=== PATIENT | female | born 1965 | race Caucasian/White ===

== ENCOUNTER 2019-10-17 11:23 | Outpatient (CLI) | payer OTHER, SELFPAY ==
[2019-10-17 13:53] LABS: T4 Thyroxine 9.83 ug/dL (5.53-11.0)
== END 2019-10-17 11:24 | disposition home or self-care (01) ==
LOC: ANHWCLAB 11:27
PROVIDERS: PCP Internal Medicine Endocrinology, Diabetes & Metabolism; Visit Provider Internal Medicine Endocrinology, Diabetes & Metabolism
DX: E05.90 Thyrotoxicosis, unspecified without thyrotoxic crisis or storm (principal)
CPT/HCPCS: 36415; 84436; 84443

== ENCOUNTER 2020-08-06 12:01 | Outpatient (CLI) | payer OTHER, SELFPAY ==
[2020-08-06 12:52] LABS: Free T4 Free Thyroxine 1.03 ng/mL (0.78-2.19); Vitamin D 25 Hydroxy 91.4 ng/mL
[2020-08-08 14:41] LABS: Thyroid Stimulating Immunoglob <89 % baseline (<140)
[2020-08-11 07:00] LABS: Triiodothyronine T3 Free 3.2 pg/mL (2.3-4.2)
== END 2020-08-06 12:02 | disposition home or self-care (01) ==
LOC: ANHLAB 12:03
PROVIDERS: PCP Physician Assistant; Visit Provider Internal Medicine Endocrinology, Diabetes & Metabolism
DX: E05.90 Thyrotoxicosis, unspecified without thyrotoxic crisis or storm (principal); E04.9 Nontoxic goiter, unspecified
CPT/HCPCS: 36415; 82306; 84439; 84443; 84445; 84481

== ENCOUNTER 2021-04-07 14:31 | Outpatient (CLI) | payer OTHER, SELFPAY ==
[2021-04-07 15:34] LABS: Free T4 Free Thyroxine 1.03 ng/mL (0.78-2.19)
[2021-04-07 15:43] LABS: Thyroid Stimulating Hormone 0.871 uIU/mL (0.465-4.680)
== END 2021-04-07 14:32 | disposition home or self-care (01) ==
LOC: ANHLAB 14:33
PROVIDERS: PCP Physician Assistant; Visit Provider Internal Medicine Endocrinology, Diabetes & Metabolism
DX: E05.90 Thyrotoxicosis, unspecified without thyrotoxic crisis or storm (principal)
CPT/HCPCS: 36415; 84439; 84443

== ENCOUNTER 2021-04-18 08:15 | Outpatient (CLI) | payer OTHER, SELFPAY ==
[2021-04-22 01:09] LABS: Testosterone Total 19 ng/dL (2-45)
== END 2021-04-18 08:16 | disposition home or self-care (01) ==
PROVIDERS: PCP Physician Assistant; Visit Provider Internal Medicine Endocrinology, Diabetes & Metabolism
DX: L65.9 Nonscarring hair loss, unspecified (principal)
CPT/HCPCS: 36415; 84403

== ENCOUNTER 2021-10-15 15:22 | Outpatient (CLI) | payer OTHER, SELFPAY ==
[2021-10-15 17:19] LABS: Free T4 Free Thyroxine 1.14 ng/mL (0.78-2.19)
== END 2021-10-15 15:23 | disposition home or self-care (01) ==
LOC: ANHLAB 15:23
PROVIDERS: PCP Physician Assistant; Visit Provider Internal Medicine Endocrinology, Diabetes & Metabolism
DX: E05.90 Thyrotoxicosis, unspecified without thyrotoxic crisis or storm (principal)
CPT/HCPCS: 36415; 84439; 84443

== ENCOUNTER 2022-04-30 08:41 | Outpatient (CLI) | payer OTHER, SELFPAY ==
[2022-04-30 09:48] LABS: Thyroid Stimulating Hormone 0.786 uIU/mL (0.465-4.680)
[2022-04-30 09:50] LABS: Free T4 Free Thyroxine 1.39 ng/mL (0.78-2.19)
== END 2022-04-30 08:42 | disposition home or self-care (01) ==
LOC: ANHLAB 08:42
PROVIDERS: PCP Physician Assistant; Visit Provider Internal Medicine Endocrinology, Diabetes & Metabolism
DX: E05.90 Thyrotoxicosis, unspecified without thyrotoxic crisis or storm (principal)
CPT/HCPCS: 36415; 84439; 84443

== ENCOUNTER 2022-10-25 14:27 | Outpatient (CLI) | payer OTHER, SELFPAY ==
[2022-10-25 15:42] LABS: Thyroid Stimulating Hormone 0.967 uIU/mL (0.465-4.680)
[2022-10-25 15:50] LABS: Free T4 Free Thyroxine 1.34 ng/mL (0.78-2.19)
== END 2022-10-25 14:28 | disposition home or self-care (01) ==
LOC: ANHLAB 14:28
PROVIDERS: PCP Physician Assistant; Visit Provider Internal Medicine Endocrinology, Diabetes & Metabolism
DX: E05.90 Thyrotoxicosis, unspecified without thyrotoxic crisis or storm (principal)
CPT/HCPCS: 36415; 84439; 84443

== ENCOUNTER 2022-11-16 10:16 | Outpatient (CLI) | payer OTHER, SELFPAY ==
--- NOTE | ~2022-11-16 | US_ITS ---
EXAMINATION: US thyroid DATE: 11/16/2022 11:01 INDICATION: Thyroid nodules. TECHNIQUE: Multiple ultrasound images of the thyroid were obtained. COMPARISON: Thyroid scintigraphy 12/07/18 FINDINGS: The right thyroid lobe measures 6.3 x 2.5 x 2.4 cm. The left thyroid lobe measures 5.3 x 2.3 x 2.4 c m. In the right thyroid lobe, there is a 5 mm solid, hypoechoic, wider than tall nodule with smooth margin without echogenic foci (TI-RADS TR4). In the left thyroid lobe, there is a 9 mm solid, hypoech oic, wider than tall nodule with lobulated margin and single punctate echogenic focus (TR5). In the l eft thyroid lobe, there is a 7 mm solid, hypoechoic, wider than tall nodule with smooth margin withou t echogenic foci (TR4). IMPRESSION: 1. Small thyroid nodules. Thyroid ultrasound is recommended in one year. Reviewed, dictated and finalized at location A.
== END 2022-11-16 10:17 | disposition home or self-care (01) ==
PROVIDERS: PCP Physician Assistant; Visit Provider Internal Medicine Endocrinology, Diabetes & Metabolism
DX: E04.2 Nontoxic multinodular goiter (principal)
CPT/HCPCS: 76536

== ENCOUNTER 2023-04-19 12:57 | Outpatient (CLI) | payer OTHER, SELFPAY ==
[2023-04-19 14:30] LABS: Thyroid Stimulating Hormone 0.813 uIU/mL (0.465-4.680)
[2023-04-19 14:52] LABS: Free T4 Free Thyroxine 1.33 ng/mL (0.78-2.19); Vitamin D 25 Hydroxy 81.5 ng/mL
[2023-04-19 16:24] LABS: Hemoglobin A1C 5.6 % (<5.7)
== END 2023-04-19 12:58 | disposition home or self-care (01) ==
LOC: ANHLAB 12:58
PROVIDERS: PCP Physician Assistant; Visit Provider Internal Medicine Endocrinology, Diabetes & Metabolism
DX: E05.90 Thyrotoxicosis, unspecified without thyrotoxic crisis or storm (principal); R73.03 Prediabetes; R79.89 Other specified abnormal findings of blood chemistry
CPT/HCPCS: 36415; 82306; 83036; 84439; 84443

== ENCOUNTER 2023-11-23 11:57 | Outpatient (CLI) | payer OTHER, SELFPAY ==
[2023-11-23 13:26] LABS: Thyroid Stimulating Hormone 0.868 uIU/mL (0.465-4.680)
[2023-11-23 21:19] LABS: Free T4 Free Thyroxine 1.27 ng/mL (0.78-2.19)
[2023-11-24 00:57] LABS: Hemoglobin A1C 5.6 % (<5.7)
== END 2023-11-23 11:58 | disposition home or self-care (01) ==
LOC: ANHLAB 12:01
PROVIDERS: PCP Physician Assistant; Visit Provider Internal Medicine Endocrinology, Diabetes & Metabolism
DX: E05.90 Thyrotoxicosis, unspecified without thyrotoxic crisis or storm (principal); R73.03 Prediabetes
CPT/HCPCS: 36415; 83036; 84439; 84443

== ENCOUNTER 2024-02-08 14:40 | Outpatient (CLI) | payer OTHER, SELFPAY ==
--- NOTE | ~2024-02-08 | US_ITS ---
EXAMINATION: US thyroid DATE: 02/08/2024 15:10 INDICATION: Nontoxic single thyroid nodule. TECHNIQUE: Multiple ultrasound images of the thyroid were obtained. COMPARISON: Ultrasound 11/16/2022 FINDINGS: The right thyroid lobe measures 6.7 x 2.6 x 2.5 cm. The left thyroid lobe measures 5.3 x 2.1 x 2.3 c m. In the left thyroid lobe, there is a 10 mm solid, hypoechoic, wider than tall nodule with lobulat ed margin and punctate echogenic foci (TI-RADS TR5). In the left thyroid lobe, there is a 9 mm solid, very hypoechoic, wider than tall nodule with lobulated margin and punctate echogenic focus (TR5). Th ere are multiple subcentimeter nodules in the thyroid. IMPRESSION: 1. Multinodular goiter. Ultrasound-guided fine-needle aspiration of the 10 mm left thyroid nodule is recommended. Reviewed, dictated and finalized at location A. IMPRESSION: 1. Multinodular goiter. Ultrasound-guided fine-needle aspiration of the 10 mm l eft thyroid nodule is recommended.
== END 2024-02-08 14:41 | disposition home or self-care (01) ==
LOC: ANHIMG 14:41
PROVIDERS: PCP Physician Assistant; Visit Provider Internal Medicine Endocrinology, Diabetes & Metabolism
DX: E04.2 Nontoxic multinodular goiter (principal)
CPT/HCPCS: 76536

== ENCOUNTER 2024-05-28 14:02 | Outpatient (CLI) | payer OTHER, SELFPAY ==
[2024-05-28 14:35] LABS: Hemoglobin A1C 5.5 % (<5.7)
[2024-05-28 14:39] LABS: Alanine Aminotransferase 29 U/L (6-35); Albumin Level 4.6 g/dL (3.5-5.1); Alkaline Phosphatase 77 U/L (38-126); Anion Gap 9 mmol/L (4-12); Aspartate Amino Transferase 24 U/L (14-36); Bilirubin,Total 0.6 mg/dL (0.2-1.3); Blood Urea Nitrogen 15 mg/dL (7-17); Calcium 9.8 mg/dL (8.4-10.2); Carbon Dioxide 29 mmol/L (22-30); Chloride 101 mmol/L (98-107); Estimated Glomerular Filt Rate > 60; Glucose 93 mg/dL (65-110); Potassium 4.1 mmol/L (3.4-5.0); Sodium 139 mmol/L (137-145)
[2024-05-28 15:10] LABS: Free T4 Free Thyroxine 1.36 ng/mL (0.78-2.19)
== END 2024-05-28 14:03 | disposition home or self-care (01) ==
PROVIDERS: PCP Physician Assistant; Visit Provider Internal Medicine Endocrinology, Diabetes & Metabolism
DX: E04.1 Nontoxic single thyroid nodule (principal); R73.03 Prediabetes; E05.90 Thyrotoxicosis, unspecified without thyrotoxic crisis or storm
CPT/HCPCS: 36415; 80053; 83036; 84439; 84443

== ENCOUNTER 2024-11-27 15:13 | Outpatient (CLI) | payer OTHER, SELFPAY ==
[2024-11-27 15:47] LABS: Hematocrit 42.3 % (37.0-47.0); Hemoglobin 13.5 g/dL (12.0-15.0); Mean Corpuscular HGB Conc 31.9 g/dl (32-36); Mean Corpuscular Hemoglobin 27.3 pg (26-34); Mean Corpuscular Volume 85.6 fl (80-100); Mean Platelet Volume 9.6 fl (7.4-10.4); Platelet Count Result 253 k/mm3 (150-375); Red Blood Count 4.94 M/mm3 (4.2-5.4); Red Cell Distribution Width 12.9 % (11.5-14.5); White Blood Count 5.9 K/mm3 (4.5-10.0)
[2024-11-27 16:18] LABS: Free T4 Free Thyroxine 1.21 ng/dL (0.78-2.19); Vitamin D 25 Hydroxy 76.7 ng/mL
[2024-11-27 16:26] LABS: Thyroid Stimulating Hormone 0.882 uIU/mL (0.465-4.680)
--- OUTSIDE RECORDS SUMMARY | 2024-11-27 16:35 | XMS_ITS | Clinical Summary ---
Author Organization [facility] [employer] Address [address] [place] [address] Care Team Providers Care Product Manager Name Role Phone Terri Shoemaker Primary Care Provider [phone] Source Comments [facility],non-owned Affiliates and Associated Physician Practices is amultiple site organization consisting of ambulatory clinics and hospital sitesin [place], [place], [place] and [place]. This disclosure is being madepursuant to the Care Everywhere program and may not contain all information available regarding this patient. Last updated 18.[facility] [employer] Allergies Active Allergy Reactions Criticality Noted Date Comments Allergy Rash Medium 10/15/2007 rash Clindamycin Itching,Rash Medium 03/11/2010 Not sure Clobetasol Rash Medium 07/21/2011 Rash Codeine Rash,GI Discomfort Medium 03/11/2009 Diphenhydramine Rash Medium 10/15/2007 rash Penicillin V Rash Medium 10/01/2018 Sulfa Drugs Rash,Urticaria,Other Medium 10/15/2007 Medications * Be aware that medications may not be up to date on this document. Alwaysverify current medications with the patient. Medication Sig Dispensed Refills Start Date End Date Status Support Hose Apply 1 Piece to affected area once daily 11/16/2018 Active methIMAzole (TAPAZOLE) 5 MG tablet Take 1 (one) tablet by mouth once daily Tuesday through tuesday12/11/2018 Active Cholecalciferol (VITAMIN D3) 43378 units capsule Take 1 (one) capsule by mouth every 7 days 10/26/2018 Active aspirin (ASPIRIN) 81 MG chew tablet Take 1 (one) tablet by mouth once daily 100 tablet 4 03/20/2020 Active clotrimazole-betamet hasone (Lotrisone) 1-0.05 % cream Apply to affected area 2 times daily 06/25/2024 Active FREESTYLE LITE STRIPS test strip 06/04/2024 Active Lancets (ONETOUCH DELICA PLUS 33G EXTRA FINE LANCET) 08/06/2024 Active metFORMIN ER 24hr (Glucophage XR) 750 MG tablet Take 1 (one) tablet by mouth once daily 08/21/2024 Active Active Problems Problem Noted Date Diagnosed Date Punctal stenosis, acquired, bilateral 11/21/2020 Increased glucose level 04/14/2020 Health maintenance examination 04/02/2020 Overview (11/19/2020): PMH: 04/11/2020 Last pap: bingo attendant 03/20/2020 Last mammogram:03/31/2020 Last dexa: Last colonoscopy/cologuard: 11/07/2015 repeat 5 yrs (2020) Last Hep C:03/2020 Last tdap:10/30/2012 Last Prevnar/pneumovax: Last Shingrix: info given Last eye exam: due Last Assessment & Plan: PMH: 04/11/2020 Last pap: bingo attendant 03/20/2020 Last mammogram:03/31/2020 Last dexa: Last colonoscopy/cologuard: 11/07/2015 repeat 5 yrs (2020) Last Hep C: Last tdap:10/30/2012 Last Prevnar/pneumovax: Last Shingrix: info given Last eye exam: due Crohn's disease 03/20/2020 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 Exercise 150min-300min per week of moderate intensity. Diet: good, healthy protein (eggs, nuts, peanut butter, chicken, fish, turkey, less pork/beef), lots of vegetables, less carbohydrates and less sugar. Graves disease 12/12/2018 Acute deep vein thrombosis ( DVT) of femoral vein of right lower extremity 11/16/2018 Anemia 11/16/2018 Pulmonary emboli 10/01/2018 Mixed incontinence 06/21/2018 Tubular adenoma of colon 10/01/2016 Esophageal reflux 09/30/2016 Thyroid nodule 09/30/2016 Vitamin D deficiency 09/30/2016 Cervical cancer screening 09/18/2013 Overview (03/26/2020): no h/o abn paps paps negative 02/2009, 02/2010, 03/2011 co-testing negative 02/2020 nilm neg hpv History of endometriosis 04/07/2011 Pre-diabetes 04/07/2011 Urinary incontinence 04/07/2011 Encounters Date Type Department Care Team Description 10/03/2024 Telephone [facility] - AUTOMATION CONTROL INTEGRATOR [address] [place] [address] Thomas Oliveros MD Nurse Only 09/27/2024 10:00 AM ROLLER DIE CUTTING MACHINE OPERATOR Office Visit [facility] - AUTOMATION CONTROL INTEGRATOR [address] [place] [address] Thomas Oliveros MD Well woman exam with routine gynecological exam (Primary Dx); Vaginal discharge 09/27/2024 9:00 AM ROLLER DIE CUTTING MACHINE OPERATOR - 09/27/2024 11:59 PM ROLLER DIE CUTTING MACHINE OPERATOR Hospital Encounter [facility] [address] [place] [address] Terri Shoemaker PA Discharge Disposition: Home or Self Care from Last 3 Months Immunizations Name Administration Dates Next Due TD (ADULT), 5 LF TETANUS TOXOID, ADSORBED, PF TDAP (7yrs+) 10/30/2012 Family History Medical History Relation Name Comments High Cholesterol Father Osteoporosis Mother Cancer - Breast Neg Hx Relation Name Status Comments Father Mother Social History Tobacco Use Types Packs/Day Years Used Date Smoking Tobacco: Never Smokeless Tobacco: Never Tobacco Cessation:Counseling Given: Not Answered Alcohol Use Standard Drinks/Week Comments Yes 0 (1 standard drink = 0.6 oz pur e alcohol) Sex and Gender Information Value Date Recorded Sex Assigned at Not on file Gender Identity Not on file Sexual Orientation Not on file Last Filed Vital Signs Vital Sign Reading Time Taken Comments Blood Pressure 122/78 09/27/2024 10:03 AM ROLLER DIE CUTTING MACHINE OPERATOR Pulse 74 06/21/2018 10:09 AM CDT Temperature 36.1 C (96.9 F) 06/21/2018 10:09 AM CDT Respiratory Rate - - Oxygen Saturation 95% 06/21/2018 10:09 AM CDT Inhaled Oxygen Concentration - - Weight 74.6 kg (164 lb 6.4 oz) 09/27/2024 10:03 AM ROLLER DIE CUTTING MACHINE OPERATOR Height 170.2 cm (5' 7 ) 09/27/2024 10:03 AM ROLLER DIE CUTTING MACHINE OPERATOR Body Mass Index 25.75 09/27/2024 10:03 AM ROLLER DIE CUTTING MACHINE OPERATOR Plan of Treatment Upcoming Encounters Date Type Department Care Team (Late st Contact Info) Description 01/17/2025 1:30 PM CDT Office Visit [facility] - AUTOMATION CONTROL INTEGRATOR [address] [place] [phone] Thomas Oliveros MD [address] [facility] [address] [place] [address] 10/03/2025 11:45 AM ROLLER DIE CUTTING MACHINE OPERATOR Office Visit [facility] - AUTOMATION CONTROL INTEGRATOR [address] [place] [phone] Thomas Oliveros MD [address] [facility] [address] [place] [address] Health Maintenance Due Date Last Done Comments COLOGUARD (AGES 45-75) - COLON CA SCREENING [address] COLONOGRAPHY - COLON CA SCREENING 1963 FIT - COLON CA SCREENING 1963 FLEX SIG - COLON CA SCREENING 1963 HIV SCREENING 1978 HEPATITIS C SCREENING 04/25/1981 PNEUMOCOCCAL VACCINE 50+ (1 of 1 - PCV) 2013 ZOSTER VACCINE (1 of 2) 2013 DTAP/TDAP/TD VACCINES (3 - Td or Tdap) 10/30/2022 10/30/2012, 10/30/2012 COVID-19 VACCINE ( - 2023- season) 2024 DEPRESSION SCREENING 08/22/2024 SCREENING FOR DIABETES 09/27/2024 LIPID TESTING 02/21/2025 02/22/2020 INFLUENZA VACCINE (Season Ended) 2025 COLONOSCOPY - COLON CA SCREENING 11/04/2025 11/05/2015 Colorectal Cancer Screening 11/04/2025 MAMMOGRAM 09/27/2026 09/27/2024, 08/23, 07/29/2022, Additional history exists PAP with HPV 09/16/2028 09/16/2023, 03/20/2020 Respiratory Syncytial Virus (RSV) Vaccine Pt: or over 60 yrs (1 - 1-dose 75+ series) 2038 HEPATITIS B VACCINE Aged Out No longe r eligible based on patient's age to complete this topic HIB VACCINE Aged Out No longer eligi ble based on patient's age to complete this topic HPV VACCINE Aged Out No longer eligi ble based on patient's age to complete this topic MENINGOCOCCAL (Group B) VACCINE SHARED DECISION-MAKING Aged Out No longer eligible based on patient's age to complete this topic MENINGOCOCCAL GROUPS A/C/Y/W VACCINE Aged Out No longer eligible based on patient's age to complete this topic Procedures Procedure Name Priority Date/Time Associated Diagnosis Comments SURESWAB VAGINOSIS/VAGINITI S PLUS Routine 09/27/2024 10:52 AM ROLLER DIE CUTTING MACHINE OPERATOR Vaginal discharge MAMMO BILAT IMPLANT SCREEN W YONY Routine 09/27/2024 9:50 AM ROLLER DIE CUTTING MACHINE OPERATOR Visit for screening mammogram HPV DETECTION HIGH RISK ALEIDA Routine 09/16/2023 11:54 AM ROLLER DIE CUTTING MACHINE OPERATOR Well woman exam with routine gynecological exam from Last 3 Months or Most Recently Relevant to Health Maintenance Results * SURESWAB VAGINOSIS/VAGINITIS PLUS (09/27/2024 10:52 AM ROLLER DIE CUTTING MACHINE OPERATOR) Sureswab Bacterial Vaginosis NEGATIVE NEGATIVE [facility] Colleen species NOT DETECTED NOT DETECTED [facility] Colleen glabrata ALEIDA NOT DETECTED NOT DETECTED [facility] Comment: Colleen species C. albicans, C. tropicalis, C. parapsilosis, and/or C. dubliniensis can be detected, but not differentiated, in the Colleen spp. result. Trichomonas vaginalis TMA NOT DETECTED NOT DETECTED [facility] Chlamydia trachomatis RNA NOT DETECTED NOT DETECTED [employer] To Get Approved For GC RNA NOT DETECTED NOT DETECTED [employer] To Get Approved For Comment: For additional information, please refer to https://[email or web address]/faq/HVW321 (This link is being provided for information/ educational purposes only.) Test Performed at: [facility] [address] [place] [address] PEPPER PAYAN MD Microbiology VAGINAL SWAB / Unknown 09/27/2024 10:52 AM ROLLER DIE CUTTING MACHINE OPERATOR 09/28/2024 8:24 AM ROLLER DIE CUTTING MACHINE OPERATOR Thomas Oliveros MD LAB - MICROBIOLOGY O RDERABLES [employer] Card [place] [address] [place] [address] * Mammo Bilat Implant Screen W Yony (09/27/2024 9:50 AM ROLLER DIE CUTTING MACHINE OPERATOR) Anatomical Region Laterality Modality Breast Bilateral Mammography 09/28/2024 12:2 3 PM ROLLER DIE CUTTING MACHINE OPERATOR Impressions 09/28/2024 12:25 PM ROLLER DIE CUTTING MACHINE OPERATOR IMPRESSION: No mammographic evidence of malignancy in either breast. ASSESSMENT: BIRADS Category 1: Negative mammogram. RECOMMENDATION: Bilateral screening mammogram in one year. Thank you for allowing us to participate in the care of your patient. [facility] utilizes [employer] as a reminder system to notify patients of their next recommended mammogram. > Interpreting Provider: Vivienne Diego MD on 09/28/2024 12:25 PM Narrative 09/28/2024 12:25 PM ROLLER DIE CUTTING MACHINE OPERATOR EXAMINATION: Digital screening mammogram. Low-dose full-field digital breast tomosynthesis examination was performed with synthetic 2D images. Computer assisted detection was utilized. DATE: 09/27/2024 9:50 AM PRIOR: 09/16/2023 and prior mammograms dating back to 2019. BREAST PARENCHYMAL DENSITY: There are scattered areas of fibroglandular density. FINDINGS: No suspicious masses, areas of architectural distortion or microcalcifications are evident on synthetic 2D mammogram or tomosynthesis images. There has been no significant interval change since the prior examination. Bilateral subpectoral silicone implants. The presence of breast implants decreases the sensitivity of mammography. Terri [facility] MAMMO ORDERABLES * HPV DETECTION HIGH RISK ALEIDA (09/16/2023 11:54 AM ROLLER DIE CUTTING MACHINE OPERATOR) High Risk Human Papilloma Result Not detected Not detected 09/23/2023 12:53 PM ROLLER DIE CUTTING MACHINE OPERATOR [facility] High Risk Human Papilloma Interp 09/23/2023 12:53 PM ROLLER DIE CUTTING MACHINE OPERATOR [facility] Comment:High Risk Human Darinel lloma Virus was Not Detected. Pathology/Cytolo gy MISCELLANEOUS SAMPLES / Unknown 09/16/2023 11:54 AM ROLLER DIE CUTTING MACHINE OPERATOR 09/20/2023 9:56 AM ROLLER DIE CUTTING MACHINE OPERATOR Narrative [facility] - 09/23/2023 12:53 PM ROLLER DIE CUTTING MACHINE OPERATOR Nucleic acid isolated from the specimen was analyzed with a nucleic acid amplification test (FDA approved Gen-Probe HPV Assay) to detect high risk human papilloma virus (Types: 16, 18, 31, 33, 35, 39, 45, 51, 52, 56, 58, 59, 66, and 68). The reference range is Not Detected . Comment: These test results should not be used as the sole basis for clinical assessment and treatment of patients. These results should always be correlated with other available data (cytology, histology, and clinical information). Thomas Oliveros MD LAB - MICROBIOLOGY O RDERABLES [facility] [address] [phone] from Last 3 Months or Most Recently Relevant to Health Maintenance Care Teams Product Manager Relationship Specialty Start Date End Date Terri Shoemaker PA [address] [place] [id number] PCP - General 06/25/21
--- OUTSIDE RECORDS SUMMARY | 2024-11-27 16:35 | XMS_ITS | Encounter Summary ---
Author Organization [facility] Facility Care Team Providers Care Latin Professor Name Role Phone Aldair Pfeiffer MD Primary Care Provid er Terri Shoemaker Unavailable [phone] Terri Shoemaker Primary Care Provider [phone] Aldair Pfeiffer MD Unavailable [phone] Encounter Details Date Type Department Care Team (Latest Contact Info) Description 11/07/2015 Orders Only [facility] CLINCONV Provider, MD [place] [address] [place] [id number] Social History Tobacco Use Types Packs/Day Years Used Date Smoking Tobacco: Never Comments Unknown Sex and Gender Information Value Date Recorded Sex Assigned at Not on file Legal Sex Female 12:19 AM CUTTER GAS Gender Identity Not on file Sexual Orientation Not on file documented as of this encounter Plan of Treatment Not on file documented as of this encounter Procedures Procedure Name Priority Date/Time Associated Diagnosis Comments COLONOSCOPY - SCAN 11/07/2015 12 :00 AM CDT SCAN - PATHOLOGY 11/07/2015 12:0 0 AM CDT documented in this encounter Results * COLONOSCOPY - SCAN (11/07/2015 12:00 AM CDT) Narrative 11/07/2015 12:00 AM CDT Ordered by an unspecified provider. Historical Provider Final Res ult * SCAN - PATHOLOGY (11/07/2015 12:00 AM CDT) Narrative 11/07/2015 12:00 AM CDT Ordered by an unspecified provider. us Historical Provider Final Res ult documented in this encounter Visit Diagnoses Not on filedocumented in this encounter Care Teams Latin Professor Relationship Specialty Start Date End Date Aldair Pfeiffer MD [address] [place] [address] PCP - General Family Medicine 12/11/18 04/03/19 Terri Shoemaker PA [address] [place] [address] PCP - General Family Medicine 04/04/19 Terri Shoemaker PA [address] [place] [address] Physician Membership Manager Physician Membership Manager 12/11/18 Adlair Pfeiffer MD [address] [place] [address] Consulting Physician Family Medicine 04/04/19 documented as of this encounter
--- OUTSIDE RECORDS SUMMARY | 2024-11-27 16:35 | XMS_ITS | Referral Summary ---
Author Organization [address] Address [address] [address] Care Team Providers Care Car Wash Manager Name Role Phone Terri Shoemaker Primary Care Provider [phone] Aldair Pfeiffer MD Unavailable [phone] Allergies Active Allergy Reactions Criticality Noted Date Comments Clindamycin Itching,Rash Medium 03/11/2010 rash Not sure Codeine Stomach upset,Rash,Unknown Medium 10/15/2007 Diphenhydramine Hcl Rash Medium 10/15/2007 rash Penicillins Rash,Unknown Medium 10/15/2007 Sulfa (Sulfonamide Antibiotics) Rash,Urticaria Medium 10/15/2007 rash Medications aspirin 81 mg enteric coated tablet Take 1 tablet (81 mg total) by mouth daily Active methIMAzole (TAPAZOLE) 5 mg tablet Tuesday/tuesday /tuesday 36 tablet 1 2 Active cholecalciferol (VITAMIN D-3) 50,000 unit capsuleIndicati ons:Vitamin D deficiency TAKE 1 CAPSULE BY MOUTH ONCE A WEEK 12 capsule 3 3 Active Additional Information Patient taking differently: 2,000 Units oral Daily, Reported on 06/25/2024 triamcinolone (KENALOG) 0.1 % creamIndication s:Nummular eczema Apply to affected area 1-2 times daily as needed. Avoid face and groin. 30 g 4 04/03/20 25 Active Additional Information Patient not taking.Reported on 06/25/2024 FreeStyle Lite Strips strip 4 Active OneTouch Delica Plus Lancet 33 gauge misc 4 Active clotrimazole-be tamethasone (LOTRISONE) creamIndication s:Nummular eczema Apply topically 2 (two) times a day 30 g 1 4 Active metFORMIN XR (GLUCOPHAGE XR) 750 mg 24 hr tabletIndicatio ns:Elevated glucose Take 1 tablet (750 mg total) by mouth daily with breakfast 90 tablet 4 Active Active Problems Problem Noted Date Diagnosed Date Mixed hyperlipidemia 11/04/2022 Assessment & Plan (04/18/2024 9:23 AM CDT): Stable, diet controlled Assessment & Plan (04/09/2024 8:53 AM CDT): Diet controlled. Check labs Pre-diabetes 04/14/2020 Assessment & Plan (04/18/2024 9:23 AM CDT): Improving. Patient's A1c was 5.8. Patient's A1c is in the prediabetes range. But she has had postprandial sugar levels of 300. Consider ordering 2 hour glucose tolerance test was 75 g of glucose. This is another test to further evaluate for diabetes. Patient will hold metformin 3 days before the glucose tolerance test. Assessment & Plan (04/09/2024 8:52 AM CDT): Uncontrolled. A1c 5.9. Patient is also having sugar spikes up to 300. We are going to start patient on metformin 500 mg. Checking cortisol level. Insert plan med Assessment & Plan (10/14/2021 12:32 PM VEST MAKER): Diet controlled, due to check A1c Health maintenance examination 04/02/2020 Overview (10/01/2024): PMH: 04/18/24 Last pap: coupon clerk 08/2023 Last mammogram:09/27/24 Last dexa: Last colonoscopy/cologuard: 12/11/2021 repeat in 2026 Last Hep C:03/2020 Last tdap:11/04/22 Last Prevnar/pneumovax: Last Shingrix: info given Last eye exam: 2021 Assessment & Plan (04/18/2024 8:55 AM CDT): PMH: 04/18/24 Last pap: coupon clerk 08/2023 Last mammogram:09/16/23 Last dexa: Last colonoscopy/cologuard: 11/07/2015 repeat 5 yrs (2020) no record but patient had it completed repeat 5 years Last Hep C:03/2020 Last tdap:11/04/22 Last Prevnar/pneumovax: Last Shingrix: info given Last eye exam: 2021 Assessment & Plan (04/09/2024 8:52 AM CDT): Checking lab work Assessment & Plan (10/14/2021 10:42 AM VEST MAKER): PMH: 10/14/2021 Last pap: coupon clerk 03/20/2020 Last mammogram:03/31/2020, 04/15/21 Last dexa: Last colonoscopy/cologuard: 11/07/2015 repeat 5 yrs (2020) referral placed Last Hep C:03/2020 Last tdap:10/30/2012 Last Prevnar/pneumovax: Last Shingrix: info given Last eye exam: 2020 Assessment & Plan (04/11/2020 12:18 PM CDT): PMH: 04/11/2020 Last pap: coupon clerk 03/20/2020 Last mammogram:03/31/2020 Last dexa: Last colonoscopy/cologuard: 11/07/2015 repeat 5 yrs (2020) Last Hep C: Last tdap:10/30/2012 Last Prevnar/pneumovax: Last Shingrix: info given Last eye exam: due Crohn's disease 03/20/2020 Assessment & Plan (04/18/2024 9:23 AM CDT): Krysta, will check on last colonoscopy date Assessment & Plan (10/14/2021 12:32 PM VEST MAKER): Followed by GI. Patient due for repeat colonoscopy BMI 29.0-29.9,adult 04/04/2019 Assessment & Plan (04/18/2024 9:23 AM CDT): Educated patient on healthy diet/exercise plan. Exercise 150min-300min per week of moderate intensity. Diet: good, healthy protein (eggs, nuts, peanut butter, chicken, fish, turkey, less pork/beef), lots of vegetables, less carbohydrates and less sugar. Assessment & Plan (10/14/2021 12:32 PM VEST MAKER): Uncontrolled. Goal of BMI is less than 30 Assessment & Plan (04/11/2020 12:14 PM CDT): Educated patient on healthy diet/exercise plan. Exercise 150min-300min per week of moderate intensity. Diet: good, healthy protein (eggs, nuts, peanut butter, chicken, fish, turkey, less pork/beef), lots of vegetables, less carbohydrates and less sugar. Assessment & Plan (04/04/2019 1:03 PM CDT): Educated patient on healthy diet/exercise plan. Exercise 150min-300min per week of moderate intensity. Diet: good, healthy protein (eggs, nuts, peanut butter, chicken, fish, turkey, less pork/beef), lots of vegetables, less carbohydrates and less sugar. Graves disease 12/12/2018 Assessment & Plan (04/18/2024 9:21 AM CDT): Stable, followed by endocrinology Assessment & Plan (04/09/2024 8:52 AM CDT): TSH was normal. Followed by endocrinology. Assessment & Plan (04/03/2024 9:03 AM CDT): Managed by endocrinology Discussed this could be the cause for hot flashes Potentially could have impacted her elevated blood sugar Assessment & Plan (10/14/2021 12:32 PM VEST MAKER): Followed by endocrinology Assessment & Plan (04/11/2020 12:14 PM CDT): Followed by endocrinology Thyroid nodule 09/30/2016 Assessment & Plan (04/18/2024 9:21 AM CDT): Stable, followed by endocrinology Assessment & Plan (10/14/2021 12:32 PM VEST MAKER): Followed by endocrinology Assessment & Plan (04/11/2020 12:15 PM CDT): Followed by endocrinology Vitamin D deficiency 09/30/2016 Assessment & Plan (04/18/2024 9:21 AM CDT): Stable, continue vitamin-D at 2000 units daily Assessment & Plan (10/14/2021 12:32 PM VEST MAKER): Continue vitamin-D, check labs Assessment & Plan (04/11/2020 12:15 PM CDT): Krysta continue vitamin-D Resolved Problems Problem Noted Date Diagnosed Date Resolved Date Diabetes mellitus 04/18/2024 04/18/2024 Elevated LFTs 11/04/2022 04/09/2024 Overview (11/04/2022): Will continue to monitor, low-fat diet and increase exercise and number should come down Tinea corporis 07/07/2022 04/18/2024 Assessment & Plan (07/07/2022 1:51 PM VEST MAKER): Start treatment with Lotrisone cream BID for 2-3 weeks or until symptoms have resolved. Notify office with any worsening rash, spreading rash or symptoms that do not resolve. Venous insufficiency of right lower extremity 10/01/1910/14/2021 Varicose veins of right lowe r extremity with pain 08/06/2021 10/14/2021 Acute deep vein thrombosis ( DVT) of femoral vein of right lower extremity 11/16/2018 04/11/2020 PE (pulmonary thromboembolism) 10/06/2018 04/04/2019 Mixed incontinence 06/21/2018 Assessment & Plan (04/11/2020 12:15 PM CDT): Stable Tubular adenoma of colon 10/01/2016 Assessment & Plan (04/11/2020 12:15 PM CDT): Next colonoscopy due in 2020 Esophageal reflux 09/30/2016 04/11/2020 History of endometriosis 04/07/2011 Prediabetes 04/07/2011 04/09/2024 Assessment & Plan (04/03/2024 9:04 AM CDT): She seems to be eating well based on her recollection of her foods. She would like to see a pound keeper for more insight into what she should be eating to prevent diabetes. Referral placed. Suspect that she has pretty high insulin resistance at this time. Will check A1c and insulin level. Maybe a good candidate for metformin Immunizations Immunization Administration Dates Next Due Influenza, Unspecified 06/25/2024(Deferr ed: Patient Refused),06/23/2023(Deferred: Patient decision),07/07/2022(Deferred: Patient Refused),06/23/2022(Deferred: Patient decision),05/22/2022(Deferred: Patient decision),07/02/2021(Deferred: Patient Refused),05/22/2021(Deferred: Patient decision),05/22/2021(Deferred: Patient Refused),05/22/2020(Deferred: Patient Refused),05/22/2020(Deferred: Patient Refused) PPD TEST 01/10/2001 Td, Adsorbed, Preservative F ree, Adult Use, Lf Unspecified 10/30/2012 Tdap 11/04/2022,10/30/2012 Typhoid H-P SQ/ID 01/10/2001 ZOSTER Recombinant 06/25/2024(Deferred: Patient Refused) Social History Tobacco Use Types Packs/Day Years Used Date Smoking Tobacco: Never Smokeless Tobacco: Never Tobacco Cessation:Counseling Given: Not Answered Alcohol Use Standard Drinks/Week Comments Never 0 (1 standard drink = 0.6 oz pur e alcohol) AUDIT-C Answer Date Recorded Q1: How often do you have a drink containing alcohol? Never 04/03/2024 Q2: How many drinks containi ng alcohol do you have on a typical day when you are drinking? Patient does not drink Q3: How often do you have si x or more drinks on one occasion? Never 04/03/2024 PHQ-2 Answer Date Recorded PHQ-2 Total Score (If total score is 3 or more points, staff should administer the PHQ-9) 0 06/25/2024 PHQ-9 Answer Date Recorded PHQ-9 Total Score 0 04/18/2024 Comments No Sex and Gender Information Value Date Recorded Sex Assigned at Not on file Legal Sex Female 12:19 AM VEST MAKER Gender Identity Not on file Sexual Orientation Not on file Last Filed Vital Signs Vital Sign Reading Time Taken Comments Blood Pressure 124/72 06/25/2024 10:55 AM VEST MAKER Pulse 67 06/25/2024 10:55 AM VEST MAKER Temperature 36.2 C (97.2 F) 06/25/2024 10:55 AM VEST MAKER Respiratory Rate 16 06/25/2024 10:55 AM VEST MAKER Oxygen Saturation 97% 06/25/2024 10:55 AM VEST MAKER Inhaled Oxygen Concentration - - Weight 74.9 kg (165 lb 3.2 oz) 06/25/2024 10:55 AM VEST MAKER Height 167.6 cm (5' 5.98 ) 06/25/2024 10:[address] Body Mass Index 26.68 06/25/2024 10:55 AM VEST MAKER Plan of Treatment Not on file Procedures Procedure Name Priority Date/Time Associated Diagnosis Comments MAMMOGRAPHY Routine 09/27/2024 COLONOSCOPY Routine 12/11/2021 HEPATITIS C RNA, QUANTITATIVE, NAAT Routine 04/11/2020 11:17 AM CDT Encounter for hepatitis C screening test for low risk patient Elevated glucose Vitamin D deficiency Health maintenance examination Elevated BUN PAP SMEAR WITH HPV Routine 03/20/2020 from Last 3 Months or Most Recently Relevant to Health Maintenance Results * MAMMOGRAPHY (09/27/2024) Mammography Normal us Historical Provider MD HEALTH MAINTENANCE Final Result * COLONOSCOPY (12/11/2021) Scribed Colonoscopy Normal Result [facility] Provider HEALTH MAINTENANCE Final Result * Hepatitis C RNA, Quantitative, NAAT (04/11/2020 11:17 AM CDT) Pathologist [facility] HCV RNA IU/mL Not Detected IU/mL [facility] HCV RNA log IU/mL Not Detected log IU/mL [facility] HCV quant by NAAT interp Not Detected Not Detected [facility] Comment: INTERPRETIVE INFORMATION: HCV by Quantitative NAAT Normal range for this assay is Not Detected . The quantitative range of this assay is 10 - 100,000,000 IU/mL (1.0 - 8.0 log IU/mL). Lower limit of quantitation (LLoQ): 10 IU/mL (1.0 log IU/mL) LLoQ values do not apply to diluted specimens. A result of Not Detected does not rule out the presence of inhibitors in the patient specimen or hepatitis C virus RNA concentrations below the level of detection of the test. Care should be taken when interpreting any single viral load determination. This test should not be used for blood donor screening, associated re-entry protocols, or for screening Human Cell, Tissues and Cellular Tissue-Based Products (HCT/P). Performed By: [facility] [address] [place] [address] Blood specimen (specimen) 04/11/2020 11:17 AM CDT 04/11/2020 11:30 AM CDT Narrative Resulting Agency Comment CLI Result [facility] Terri SHELTON LAB BLOOD ORDERABLES Final Res ult [employer] [address] [place] [address], [facility] [phone] * PAP SMEAR WITH HPV (03/20/2020) Pathologist [facility] Pap smear Normal Result [facility] Historical Provider HEALTH MAINTENANCE Final Result from Last 3 Months or Most Recently Relevant to Health Maintenance Insurance [facility] CLAIMS [facility] Care Teams Car Wash Manager Relationship Specialty Start Date End Date Terri Shoemaker PA [address] [place] [address] PCP - General Family Medicine 04/04/19 Aldair Pfeiffer MD [address] [place] [address] Consulting Physician Family Medicine 04/04/19
--- OUTSIDE RECORDS SUMMARY | 2024-11-27 16:35 | XMS_ITS | Encounter Summary ---
Author Organization [facility] Facility Care Team Providers Care Spreader Operator Automatic Name Role Phone Aldair Pfeiffer MD Primary Care Provid er Terri Shoemaker Unavailable [phone] Terri Shoemaker Primary Care Provider [phone] Aldair Pfeiffer MD Unavailable [phone] Encounter Details Date Type Department Care Team (Latest Contact Info) Description 11/01/2018 Orders Only [facility] ProviderMt MD [address] [place] [id number] Social History Tobacco Use Types Packs/Day Years Used Date Smoking Tobacco: Never Comments Unknown Sex and Gender Information Value Date Recorded Sex Assigned at Not on file Legal Sex Female 12:19 AM READERS' ADVISORY SERVICE LIBRARIAN Gender Identity Not on file Sexual Orientation Not on file documented as of this encounter Plan of Treatment Not on file documented as of this encounter Procedures Procedure Name Priority Date/Time Associated Diagnosis Comments CARDIOLOGY REPORT 11/13/2018 12: 00 AM CDT documented in this encounter Results * CARDIOLOGY REPORT (11/13/2018 12:00 AM CDT) Anatomical Region Laterality Modality Other Narrative 11/13/2018 12:00 AM CDT Ordered by an unspecified provider. Historical Provider [facility] SELINA HERMOSILLO Final Result documented in this encounter Visit Diagnoses Not on filedocumented in this encounter Care Teams Spreader Operator Automatic Relationship Specialty Start Date End Date Aldair Pfeiffer MD [address] [place] [address] PCP - General Family Medicine 12/11/18 04/03/19 Terri Shoemaker PA [address] [facility], [place] [id number] PCP - General Family Medicine 04/04/19 Terri Shoemaker PA [address] [facility], [place] [address] Physician Information Specialist Physician Information Specialist 12/11/18 Aldair Pfeiffer MD [address] [place] [address] Consulting Physician Family Medicine 04/04/19 documented as of this encounter
--- OUTSIDE RECORDS SUMMARY | 2024-11-27 16:36 | XMS_ITS | Clinical Summary ---
Author Organization [address] Address [address] [address] Care Team Providers Care Kapok Machine Operator Name Role Phone Terri Shoemaker Primary Care Provider [phone] Aldair Pfeiffer MD Unavailable [phone] Allergies Active Allergy Reactions Criticality Noted Date [...] med Assessment & Plan (10/14/2021 12:32 PM TOOL/DIE MAKER): Diet controlled, due to check A1c Health maintenance examination 04/02/2020 Overview (10/01/2024): PMH: 04/18/24 Last pap: acid treater 08/2023 Last mammogram:09/27/24 Last dexa: Last colonoscopy/cologuard: 12/11/2021 repeat in 2026 Last Hep C:03/2020 Last tdap:11/04/22 Last Prevnar/pneumovax: Last Shingrix: info given Last eye exam: 2021 Assessment & Plan (04/18/2024 8:55 AM CDT): PMH: 04/18/24 Last pap: acid treater 08/2023 Last mammogram:09/16/23 Last dexa: Last colonoscopy/cologuard: 11/07/2015 repeat 5 yrs (2020) no record but patient had it completed repeat 5 years Last Hep C:03/2020 Last tdap:11/04/22 Last Prevnar/pneumovax: Last Shingrix: info given Last eye exam: 2021 Assessment & Plan (04/09/2024 8:52 AM CDT): Checking lab work Assessment & Plan (10/14/2021 10:42 AM TOOL/DIE MAKER): PMH: 10/14/2021 Last pap: acid treater 03/20/2020 Last mammogram:03/31/2020, 04/15/21 Last dexa: Last colonoscopy/cologuard: 11/07/2015 repeat 5 yrs (2020) referral placed Last Hep C:03/2020 Last tdap:10/30/2012 Last Prevnar/pneumovax: Last Shingrix: info given Last eye exam: 2020 Assessment & Plan (04/11/2020 12:18 PM CDT): PMH: 04/11/2020 Last pap: acid treater 03/20/2020 Last mammogram:03/31/2020 Last dexa: Last colonoscopy/cologuard: 11/07/2015 repeat 5 yrs (2020) Last Hep C: Last tdap:10/30/2012 Last Prevnar/pneumovax: Last Shingrix: info given Last eye exam: due Crohn's disease 03/20/2020 Assessment & Plan (04/18/2024 9:23 AM CDT): Krysta, will check on last colonoscopy date Assessment & Plan (10/14/2021 12:32 PM TOOL/DIE MAKER): Followed by GI. Patient due for repeat colonoscopy BMI 29.0-29.9,adult 04/04/2019 Assessment & Plan (04/18/2024 9:23 AM CDT): Educated patient on healthy diet/exercise plan. Exercise 150min-300min per week of moderate intensity. Diet: good, healthy protein (eggs, nuts, peanut butter, chicken, fish, turkey, less pork/beef), lots of vegetables, less carbohydrates and less sugar. Assessment & Plan (10/14/2021 12:32 PM TOOL/DIE MAKER): Uncontrolled. Goal of BMI is less [...] sugar Assessment & Plan (10/14/2021 12:32 PM TOOL/DIE MAKER): Followed by endocrinology Assessment & Plan (04/11/2020 12:14 PM CDT): Followed by endocrinology Thyroid nodule 09/30/2016 Assessment & Plan (04/18/2024 9:21 AM CDT): Stable, followed by endocrinology Assessment & Plan (10/14/2021 12:32 PM TOOL/DIE MAKER): Followed by endocrinology Assessment & Plan (04/11/2020 12:15 PM CDT): Followed by endocrinology Vitamin D deficiency 09/30/2016 Assessment & Plan (04/18/2024 9:21 AM CDT): Stable, continue vitamin-D at 2000 units daily Assessment & Plan (10/14/2021 12:32 PM TOOL/DIE MAKER): Continue vitamin-D, check labs Assessment & Plan (04/11/2020 12:15 PM CDT): Krysta continue vitamin-D Resolved Problems Problem Noted Date Diagnosed Date Resolved Date Diabetes mellitus 04/18/2024 04/18/2024 Elevated LFTs 11/04/2022 04/09/2024 Overview (11/04/2022): Will continue to monitor, low-fat diet and increase exercise and number should come down Tinea corporis 07/07/2022 04/18/2024 Assessment & Plan (07/07/2022 1:51 PM TOOL/DIE MAKER): Start treatment with Lotrisone cream BID [...] foods. She would like to see a valet runner for more insight into what she should [...] SQ/ID 01/10/2001 ZOSTER Recombinant 06/25/2024(Deferred: Patient Refused) Surgical History Surgery Date Site/Laterality Comments CHOLECYSTECTOMY COMBINED AUGMENTATION MAMMAPLASTY AND ABDOMINOPLASTY TONSILLECTOMY SECTION COLONOSCOPY Medical History Medical History Date Comments Graves disease 12/12/2018 PE (pulmonary thromboembolism) (HCC) 10/06/2018 Acute deep vein thrombosis ( DVT) of femoral vein of right lower extremity (HCC) 11/16/2018 History of endometriosis 04/07/2011 Mixed incontinence 06/21/2018 Thyroid nodule 09/30/2016 Vitamin D deficiency 09/30/2016 Esophageal reflux 09/30/2016 Tubular adenoma of colon 10/01/2016 Family History Medical History Relation Name Comments Hyperlipidemia Father Hypertension Father Stroke Father Hypertension Mother Hypertension Paternal Grandfather Relation Name Status Comments Father Alive Maternal Grandfather Maternal Grandmother Mother Alive Paternal Grandfather Paternal Grandmother Sister Alive Social History Tobacco Use Types Packs/Day Years [...] on file Legal Sex Female 12:19 AM TOOL/DIE MAKER Gender Identity Not on file Sexual Orientation Not on file Obstetrics History Last Filed Vital Signs Vital Sign Reading Time Taken Comments Blood Pressure 124/72 06/25/2024 10:55 AM TOOL/DIE MAKER Pulse 67 06/25/2024 10:55 AM TOOL/DIE MAKER Temperature 36.2 C (97.2 F) 06/25/2024 10:55 AM TOOL/DIE MAKER Respiratory Rate 16 06/25/2024 10:55 AM TOOL/DIE MAKER Oxygen Saturation 97% 06/25/2024 10:55 AM TOOL/DIE MAKER Inhaled Oxygen Concentration - - Weight 74.9 kg (165 lb 3.2 oz) 06/25/2024 10:55 AM TOOL/DIE MAKER Height 167.6 cm (5' 5.98 ) 06/25/2024 10:[address] Body Mass Index 26.68 06/25/2024 10:55 AM TOOL/DIE MAKER Plan of Treatment Health Maintenance Due Date Last Done Comments Hepatitis B Screening 1981 Zoster Vaccine (1 of 2) 2013 Cervical Cancer Screening 03/20/2025 03/20/2020 Regular Well Visit/Exam 18-64 04/18/2025 04/18/2024, 11/04/2022, 10/14/2021, Additional history exists Influenza Vaccine (Season Ended) 2025 Depression Screening 06/25/2025 06/25/2024, 04/18/2024, 04/18/2024, Additional history exists Breast Cancer Screening-Mammogram 09/27/2025 09/27/2024, 09/27/2024, 09/27/2024, Additional history exists Colon Cancer Screening-Colonoscopy 12/11/2026 12/11/2021, 11/05/2015 DTaP/Tdap/Td Vaccine (4 - Td or Tdap) 11/04/2032 11/04/2022, 10/30/2012, 10/30/2012 Hepatitis C Screening Completed 04/11/2020 Colon Cancer Screening-CT Colonography Discontinued 12/11/2021, 11/05/2015 Colon Cancer Screening-DNA Stool Discontinued 12/11/2021, 11/05/2015 Colon Cancer Screening-FIT Discontinued 12/11/2021, Colon Cancer Screening-Sigmoidoscopy Discontinued 12/11/2021, 11/05/2015 Pneumococcal vaccine <65 Aged Out No longer eligible based on [...] MAMMOGRAPHY (09/27/2024) Mammography Normal us Historical Provider HEALTH MAINTENANCE Final Result * COLONOSCOPY (12/11/2021) Scribed Colonoscopy Normal Historical Provider HEALTH MAINTENANCE Final Result * Hepatitis C RNA, Quantitative, NAAT (04/11/2020 11:17 AM CDT) Pathologist [facility] HCV RNA IU/mL Not Detected IU/mL [facility] txtr HCV RNA log IU/mL Not Detected log IU/mL [facility] HCV quant by NAAT interp Not Detected Not Detected [facility] Comment: INTERPRETIVE INFORMATION: HCV by Quantitative NAAT [...] and Cellular Tissue-Based Products (HCT/P). Performed By: [facility] [address] [place] [address] Blood specimen (specimen) 04/11/2020 11:17 AM CDT 04/11/2020 11:30 AM CDT Narrative Resulting Agency Comment CLI Terri SHELTON LAB BLOOD ORDERABLES Final Res ult [employer] [address] [place] [address], [facility] [phone] * PAP SMEAR WITH HPV (03/20/2020) Pathologist [facility] Pap smear Normal Historical Provider HEALTH MAINTENANCE Final Result from Last 3 Months or Most Recently Relevant to Health Maintenance Insurance [facility] CLAIMS [facility] CLAIMS Care Teams Kapok Machine Operator Relationship Specialty Start Date End Date Terri Shoemaker PA [address] [place] [address] PCP - General Family Medicine 04/04/19 Aldair Pfeiffer MD [address] [place] [address] Consulting Physician Family Medicine 04/04/19
--- OUTSIDE RECORDS SUMMARY | 2024-11-27 16:36 | XMS_ITS | Clinical Summary ---
Author Organization [facility] Address [address] [place] [address] Care Team Providers Care Cane Splicer Name Role Phone Terri Shoemaker Primary Care Provider [phone] Osvaldo Hicks MD Unavailable [phone] Allergies Active Allergy Reactions Criticality Noted Date Comments Clindamycin Rash Low 10/01/2018 Codeine Unknown,Rash,GI Upset Medium 10/15/2007 Diphenhydramine Rash Medium 10/15/2007 rash Penicillin V Rash Low 10/01/2018 Sulfa Antibiotics Rash Low 10/01/2018 Medications vitamin D3, cholecalciferol , 83440 units capsule Take 1 capsule (50,000 Units total) by mouth once a week. 9 Active methimazole 5 MG tablet Take 1 tablet by mouth TUESDAY THROUGH Tuesday 9 Active aspirin 81 MG tablet Take 1 tablet (81 mg total) by mouth daily. 30 tablet 9 Active COMPRESSION STOCKINGSIndica tions:History of pulmonary embolism 15-20 mm Hg compression knee highs. Apply in the morning and remove at bedtime. DX: edema 2 Container 1 4 Active triamcinolone (KENALOG) 0.1 % cream Apply to affected area 1-2 times daily as needed. Avoid face and groin. 4 04/03/20 25 Active clotrimazole-be tamethasone (LOTRISONE) cream Apply topically 2 (two) times daily. 4 Active metFORMIN XR (GLUCOPHAGE-XR) 750 MG 24 hr tablet Take 1 tablet (750 mg total) by mouth daily. 4 Active Cyanocobalamin (VITAMIN B 12) 500 MCG Tab Take 500 mcg by mouth daily. 5 Active Active Problems Problem Noted Date Diagnosed Date Elevated LFTs 11/04/2022 Overview (10/11/2023): Will continue to monitor, low-fat diet and increase exercise and number should come down Mixed hyperlipidemia 11/04/2022 History of pulmonary embolism 02/16/2022 Venous insufficiency of right lower extremity History of deep vein thrombosis 08/06/2021 Varicose veins of right lower extremity with brigette n 08/06/2021 Punctal stenosis, acquired, bilateral 11/21/2020 Increased glucose level 04/14/2020 Overview (02/17/2022): Last Assessment & Plan: Diet controlled, due to check A1c Crohn's disease ([facility]) 03/20/2020 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 Exercise 150min-300min per week of moderate intensity. Diet: good, healthy protein (eggs, nuts, peanut butter, chicken, fish, turkey, less pork/beef), lots of vegetables, less carbohydrates and less sugar. Graves disease 12/12/2018 Overview (04/26/2024): Last Assessment & Plan: Stable, followed by endocrinology Anemia, unspecified type 11/16/2018 Pulmonary emboli ([facility]) 10/01/2018 Esophageal reflux 09/30/2016 Thyroid nodule 09/30/2016 Overview (04/26/2024): Last Assessment & Plan: Stable, followed by endocrinology Vitamin D deficiency 09/30/2016 Overview (04/26/2024): Last Assessment & Plan: Stable, continue vitamin-D at 2000 units daily History of endometriosis 04/07/2011 Urinary incontinence 04/07/2011 Pre-diabetes 04/07/2011 Resolved Problems Problem Noted Date Diagnosed Date Resolved Date Acute deep vein thrombosis ( DVT) of femoral vein of right lower extremity ([facility]) 11/16/2018 08/06/2021 Encounters Date Type Department Care Team Description 10/22/2024 [facility]phone [facility], [address] [address] Vani Wolff collar worker Results 10/19/2024 10:59 AM SAFETY COORDINATOR - 10/19/2024 11:59 PM SAFETY COORDINATOR Hospital Encounter [facility] [place] [address] Danika Shine PA-C Discharge Disposition: Home or Self Care (Routine Discharge) 10/19/2024 10:30 AM SAFETY COORDINATOR Office Visit [facility], [address] [address] Danika Shine PA-C Follow Up (annual) 10/19/2024 Travel from Last 3 Months Immunizations Name Administration Dates Next Due Td, Adsorbed, Preservative F ree, Adult Use, Lf Unspecified 10/30/2012 Tdap (Generic) 11/04/2022 Typhoid Vi Polysaccharide Vacc 25 Mcg/0.5Ml Im S oln 01/10/2001 Social History Tobacco Use Types Packs/Day Years Used Date Smoking Tobacco: Never Smokeless Tobacco: Never Tobacco Cessation:Counseling Given: Not Answered Alcohol Use Standard Drinks/Week Comments No 0 (1 standard drink = 0.6 oz pur e alcohol) AUDIT-C Answer Date Recorded Frequency of Alcohol Consumption Never 10/01/2018 Average Number of Drinks Not on file 019 Frequency of Binge Drinking Not on file 09/22 Comments Unknown Sex and Gender Information Value Date Recorded Sex Assigned at Female 10/19/2024 10:17 AM SAFETY COORDINATOR Legal Sex Female 5:33 PM CDT Gender Identity Not on file Sexual Orientation Not on file Occupation Industry Job Start Date Job End Date Not on file Not on file Not on file Not on file Last Filed Vital Signs Vital Sign Reading Time Taken Comments Blood Pressure 132/84 10/19/2024 11:39 AM SAFETY COORDINATOR Pulse 68 10/19/2024 10:22 AM SAFETY COORDINATOR Temperature 36.4 C (97.6 F) 12/08/2018 8:06 AM CDT Respiratory Rate 16 12/08/2018 10:00 AM CDT Oxygen Saturation 98% 10/19/2024 10:22 AM SAFETY COORDINATOR Inhaled Oxygen Concentration - - Weight 73.9 kg (163 lb) 10/19/2024 10:22 AM SAFETY COORDINATOR Height 170.2 cm (5' 7 ) 10/19/2024 10:22 AM SAFETY COORDINATOR Body Mass Index 25.53 10/19/2024 10:22 AM SAFETY COORDINATOR Plan of Treatment Upcoming Encounters Date Type Department Care Team (Late st Contact Info) Description 05/02/2025 10:45 AM CDT Office Visit [facility] [address] [id number] Josias Loja MD [facility]. [address] [id number] 10/23/2025 10:30 AM SAFETY COORDINATOR Office Visit [facility] [address], [place] [id number] Osvaldo Hicks MD [facility]. [facility] [address], [place] [id number] Health Maintenance Due Date Last Done Comments Colorectal Cancer Screening Colonoscopy (10 Years) 1963 Annual Physical 1966 Hepatitis C 1981 Zoster Vaccines (1 of 2) 2013 RSV Immunization or 60+ Years (1 - Risk 60-74 years 1-dose series) 2023 COVID-19 Vaccine ( season) 2024 Cervical Cancer Screening Pap Smear (Age 30 to 64) Every 3 Years 09/16/2026 09/16/2023 Mammogram Screening 09/27/2026 09/27/2024, 09/16/2023, 07/29/2022, Additional history exists Cervical Cancer Screening Pap with HPV Testing (Age 30 to 64) Every 5 Years 09/16/2028 09/16/2023 Cervical Cancer Screening with HPV 09/16/2028 DTaP, Tdap and Td Vaccines (2 - Td or Tdap) 11/04/2032 11/04/2022, 10/30/2012 Meningococcal B Vaccine Aged Out No l onger eligible based on patient's age to complete this topic Meningococcal Vaccine Aged Out No nelson yudi eligible based on patient's age to complete this topic Pneumococcal Vaccine: Pediatrics (0 to 5 Years) and At-Risk Patients (6 to 64 Years) Aged Out No longer eligible based on patient's age to complete this topic RSV Immunizations Under 20 Months Aged Out No longer eligible based on patient's age to complete this topic Procedures Procedure Name Priority Date/Time Associated Diagnosis Comments CBC W/DIFF AUTOMATED Routine 10/19/2024 11:03 AM SAFETY COORDINATOR Venous insufficiency of right lower extremity History of pulmonary embolism HEMOGLOBIN, GLYCOSYLATED Routine 10/19/2024 11:03 AM SAFETY COORDINATOR Prediabetes VITAMIN B-12 Routine 10/19/2024 11:03 AM SAFETY COORDINATOR Venous insufficiency of right lower extremity Hair loss THYROXINE, FREE (FT4) Routine 10/19/2024 11:03 AM SAFETY COORDINATOR Venous insufficiency of right lower extremity Hair loss THYROID STIM HORMONE TSH Routine 10/19/2024 11:03 AM SAFETY COORDINATOR Venous insufficiency of right lower extremity Hair loss COMPREHENSIVE METABOLIC PANEL Routine 10/19/2024 11:03 AM SAFETY COORDINATOR Venous insufficiency of right lower extremity from Last 3 Months Results * HGB A1C (10/19/2024 11:03 AM SAFETY COORDINATOR) HGB A1C 4.7 <5.7 % 10/19/2024 4:57 PM SAFETY COORDINATOR [facility] Comment: ADA GUIDELINES 2009 5.7 TO 6.4% INCREASED RISK OF DIABETES > OR = 6.5% CONSISTENT WITH DIABETES ESTIMATED AVG GLUCOSE 88 mg/dL 10/19/2024 4:57 PM SAFETY COORDINATOR [facility] 10/19/2024 11:0 3 AM SAFETY COORDINATOR Danika Shine PA-C LABORATORY Final Resul t Performing Organization Address City/[facility]/ZIP Co de Phone Number [facility] [address] [place] [address], [place] [phone] * (ABNORMAL) VITAMIN B-12 (10/19/2024 11:03 AM SAFETY COORDINATOR) VITAMIN B12 S/P/B 149(L) 254 - 1,320 PG/ML 10/19/2024 12:14 PM SAFETY COORDINATOR [facility] 10/19/2024 11:0 3 AM SAFETY COORDINATOR Danika Shine PA-C LABORATORY Final Resul t Performing Organization Address City/[facility]/ZIP Co de Phone Number [facility] [address] [place] [address], [place] [phone] * (ABNORMAL) COMPREHENSIVE METABOLIC PANEL (10/19/2024 11:03 AM SAFETY COORDINATOR) GLUCOSE 94 70 - 99 MG/DL 10/19/2024 12:03 PM SAFETY COORDINATOR [facility] BUN 19(H) 7 - 18 MG/DL 10/19/2024 12:03 PM SAFETY COORDINATOR [facility] CREATININE S/P/B 0.74 0.55 - 1.02 MG/DL 10/19/2024 12:03 PM [facility] SODIUM S/P/B 139 136 - 145 MMOL/L 10/19/2024 12:03 PM [facility] POTASSIUM S/P/B 4.0 3.5 - 5.1 MMOL/L 10/19/2024 12:03 PM [facility] CHLORIDE S/P/B 107 97 - 115 MMOL/L 10/19/2024 12:03 PM [facility] CO2 30.1 21 - 32 MMOL/L 10/19/2024 12:03 PM [facility] CALCIUM S/P/B 9.3 8.5 - 10.1 MG/DL 10/19/2024 12:03 PM [facility] BILIRUBIN TOTAL S/P/B 0.6 0.2 - 1.2 MG/DL 10/19/2024 12:03 PM [facility] Comment: THIS ASSAY IS NOT RECOMMENDED FOR PATIENTS UNDERGOING TREATMENT WITH ELTROMBOPAG DUE TO THE POTENTIAL FOR FALSELY ELEVATED RESULTS. TOTAL PROTEIN S/P/B 7.0 6.4 - 8.2 G/DL 10/19/2024 12:03 PM [facility] ALBUMIN S/P/B 3.9 3.4 - 5.0 G/DL 10/19/2024 12:03 PM [facility] AST 9(L) 15 - 37 U/L 10/19/2024 12:03 PM [facility] ALT 19 14 - 55 U/L 10/19/2024 12:03 PM [facility] ALKALINE PHOSPHATASE S/P/B 72 50 - 136 U/L 10/19/2024 12:03 PM [facility] ANION GAP 1.9(L) 2 - 10 MMOL/L 10/19/2024 12:03 PM [facility] BUN CREATININE RATIO 25.6 6 - 26 10/19/2024 12:03 PM [facility] A/G RATIO 1.3 1.0 - 2.0 RATIO 10/19/2024 12:03 PM [facility] GFR ESTIMATE >90 >90 ML/MIN/1.7 3 M2 10/19/2024 12:03 PM [facility] Comment: NOTE: eGFR is not calculated for patients <18 years of age or gender unknown. This is an estimated GFR calculation using the new CKD EPI creatinine equation without race and so does not require a correction factor for race. This estimated GFR should not be used for calculating drug doses. 10/19/2024 11:0 3 AM SAFETY COORDINATOR us Danika Shine PA-C LABORATORY Final Resul t [facility] [address] [place] [address], [place] [phone] * (ABNORMAL) CBC W/DIFF AUTOMATED (10/19/2024 11:03 AM SAFETY COORDINATOR) WBC 5.58 4.5 - 11.0 x10'3/uL 10/19/2024 11:30 AM [facility] RBC 5.04 4.20 - 5.40 x10'6/uL 10/19/2024 11:30 AM [facility] HGB 13.5 12.0 - 16.0 G/DL 10/19/2024 11:30 AM [facility] HCT 42.5 38.0 - 48.0 % 10/19/2024 11:30 AM [facility] MCV 84.3 81.0 - 99.0 FL 10/19/2024 11:30 AM [facility] MCH 26.8(L) 27.0 - 31.0 PG 10/19/2024 11:30 AM [facility] MCHC 31.8(L) 32.0 - 36.0 G/DL 10/19/2024 11:30 AM [facility] RDW 13.0 11.5 - 14.5 % 10/19/2024 11:30 AM [facility] PLT 240 130 - 400 x10'3/uL 10/19/2024 11:30 AM [facility] MPV 10.0 9.3 - 12.2 FL 10/19/2024 11:30 AM [facility] DIFFERENTIAL TYPE AUTOMATED DIFFERENTIAL 10/19/2024 11:30 AM [facility] NEUTROPHILS % 58.2 % 10/19/2024 11:30 AM [facility] LYMPHOCYTES % 31.9 % 10/19/2024 11:30 AM [facility] MONOCYTES % 7.9 % 10/19/2024 11:30 AM [facility] EOSINOPHILS 1.4 % 10/19/2024 11:30 AM [facility] BASOPHILS 0.4 % 10/19/2024 11:30 AM [facility] IMMATURE GRANS % 0.2 % 10/19/19 11:30 AM [facility] ABS. NEUTROPHILS 3.25 1.80 - 7.70 x10'3/uL 10/19/2024 11:30 AM [facility] ABS. LYMPHOCYTES 1.78 1.00 - 4.80 x10'3/uL 10/19/2024 11:30 AM [facility] ABS. MONOCYTES 0.44 0.24 - 0.86 x10'3/uL 10/19/2024 11:30 AM SAFETY COORDINATOR [facility] ABS. EOSINOPHILS 0.08 0.04 - 0.36 x10'3/uL 10/19/2024 11:30 AM SAFETY COORDINATOR [facility] ABS. BASOPHILS 0.02 0.01 - 0.08 x10'3/uL 10/19/2024 11:30 AM SAFETY COORDINATOR [facility] ABS. IMMATURE GRANULOCYTES 0.01 0.00 - 0.49 x10'3/uL 10/19/2024 11:30 AM SAFETY COORDINATOR [facility] 10/19/2024 11:0 3 AM SAFETY COORDINATOR Danika Shine PA-C LABORATORY Final Resul t Performing Organization Address City/[facility]/ZIP Co de Phone Number [facility] [address] [place] [address], * T4; FREE (10/19/2024 11:03 AM SAFETY COORDINATOR) FREE T4 1.02 0.76 - 1.46 NG/DL 10/19/2024 12:03 PM SAFETY COORDINATOR [facility] 10/19/2024 11:0 3 AM SAFETY COORDINATOR Danika Shine PA-C LABORATORY Final Resul t [facility] [address] [place] [address], [place] [phone] * TSH (10/19/2024 11:03 AM SAFETY COORDINATOR) TSH 0.908 0.358 - 3.74 uIU/ML 10/19/2024 12:03 PM SAFETY COORDINATOR [facility] Comment: HIGH DOSES OF BIOTIN MAY INTERFERE WITH THIS TEST RESULT. CORRELATION TO CLINICAL HISTORY AND PRESENTATION RECOMMENDED. 10/19/2024 11:0 3 AM SAFETY COORDINATOR Danika Shine PA-C LABORATORY Final Resul t [facility] [address] [place] [address], from Last 3 Months Insurance Advance Directives * Full Code (Latest Code Status on File) Date Activated Date Inactivated Comments 10/01/2018 6:42 AM 10/04/2018 2:25 PM Care Teams Cane Splicer Relationship Specialty Start Date End Date Terri Shoemaker PA [address] [place] [address] PCP - General 10/06/12 Osvaldo Hicks MD [facility]. [facility] [address] [place] [address] Rapelje Freelance Designer INTERVENTIONAL CARDIOLOGY 11/03/18
[2024-11-27 19:34] LABS: Hemoglobin A1C 5.5 % (<5.7)
== END 2024-11-27 15:14 | disposition home or self-care (01) ==
PROVIDERS: PCP Physician Assistant; Visit Provider Internal Medicine Endocrinology, Diabetes & Metabolism
DX: E05.90 Thyrotoxicosis, unspecified without thyrotoxic crisis or storm (principal); R79.89 Other specified abnormal findings of blood chemistry; R73.03 Prediabetes; E04.1 Nontoxic single thyroid nodule
CPT/HCPCS: 36415; 82306; 83036; 84439; 84443; 85027